=== PATIENT | female | born 1945 | race Caucasian/White ===

== ENCOUNTER 2020-02-19 07:55 | Day surgery (SDC) | payer OTHER, MEDICARE ==
[2020-02-12 10:44] VITALS: BMI 19.8
--- NOTE | 2020-02-16 10:11 | HP ---
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 The medial, deep and superior surgical margins are involved by tumor therefore patient is presenting for excision of positive margins. History Source: Patient Limitations to Obtaining History: No Limitations - Past Medical History Cardiovascular: Yes: HTN Musculoskeletal: Yes: Other (right hip dysplasia) - Smoking History Smoking history: Current every day smoker Have you smoked in the past 12 months: Yes Aproximately how many cigarettes per day: 5 - Alcohol/Substance Use Hx Alcohol Use: Yes (RARE) Home Medications - Allergies Allergies/Adverse Reactions: Allergies Allergy/AdvReac Type Severity Reaction Status Date / Time codeine Allergy Severe Rash Verified 02/04/20 08:59 hydromorphone [From Dilaudid] Allergy Severe Rash Verified 02/04/20 08:59 morphine Allergy Severe Rash Verified 02/04/20 08:59 oxycodone [From Percocet] Allergy Severe Rash Verified 02/04/20 08:59 tramadol [From Ultram] Allergy Severe Rash Verified 02/04/20 08:59 - Home Medications Home Medications: Ambulatory Orders Amlodipine Besylate [Norvasc -] 5 mg PO DAILY 01/27/20 Cholecalciferol (Vitamin D3) [Vitamin D3] 1 tab PO DAILY 01/27/20 Estrogens, Conjugated [Premarin] 0.45 mg PO DAILY 01/27/20 Acetaminophen [Tylenol] 650 mg PO TID PRN #20 tablet 02/03/20 Medroxyprogesterone Acetate [Provera] 2.5 mg PO DAILY 02/12/20 Family Medical History Family Hx Cancer: Brother (T cell lymphoma) Review of Systems - Review of Systems Constitutional: reports: No Symptoms Cardiovascular: reports: No Symptoms Respiratory: reports: No Symptoms Physical Examination Constitutional: Yes: Well Nourished, Calm Breast(s): Yes: Other (B-cup breasts with a left periarolar incision. No erythema or discharge noted) Assessment/Plan Plan Reexcision of left breast positive margins
[2020-02-19] MEDS ORDERED: PROPOFOL 20 ML ONE ×2 (09:42)
[2020-02-19] MEDS ORDERED: MIDAZOLAM HCL 2 MG/2 ML SINGLE DOSE VIAL ONE (09:42)
[2020-02-19] MEDS ORDERED: SUCCINYLCHOLINE CHLORIDE 200 MG/10 ML SYRINGE ONE (09:42)
[2020-02-19] MEDS ORDERED: SEVOFLURANE 250 ML BTL ONE (09:44)
[2020-02-19] MEDS ORDERED: KETOROLAC TROMETHAMINE 30 MG/1 ML VIAL IVPUSH PRN (10:02)
[2020-02-19] MEDS ORDERED: ONDANSETRON 4 MG/2 ML VIAL IVPUSH PRN ×2 (10:02→11:16)
[2020-02-19] MEDS ORDERED: DEXTROSE 5%-0.45% SALINE 1,000 ML IV SCH (10:15)
[2020-02-19] MEDS ORDERED: BUPIVACAINE HCL/PF 0.5% (5MG/ML) 10 ML VIAL ONE (10:40)
[2020-02-19] MEDS ORDERED: BUPIVACAINE HCL/PF 0.25% (2.5MG/ML) 10 ML VIAL ONE (10:40)
[2020-02-19] MEDS ORDERED: LIDOCAINE HCL 1%, 10 MG/ML (20ML VIAL) NR ONE (10:45)
[2020-02-19] MEDS ORDERED: GUM MASTIC/STORAX/MSAL/ALCOHOL 1 DRP DROPSBTL MC ONE (10:47)
[2020-02-19] MEDS ORDERED: BUPIVACAINE HCL/PF 0.5% (5MG/ML) 10 ML VIAL IJ ONE (11:05)
[2020-02-19] MEDS ORDERED: PROMETHAZINE HCL 25 MG/1 ML VIAL IVPUSH PRN (11:16)
[2020-02-19] MEDS ORDERED: ACETAMINOPHEN/CAFFEINE/BUTALBITAL 1 TAB ONE (11:17)
[2020-02-19] MEDS ORDERED: ACETAMINOPHEN/CAFFEINE/BUTALBITAL 1 TAB PO PRN (11:45)
[2020-02-19 12:35] VITALS: TEMP 98.1
[2020-02-19 12:45] VITALS: PULSE 70
[2020-02-19 12:58] VITALS: BP 125/51
--- NOTE | 2020-02-19 14:33 | OP ---
DATE OF OPERATION: 02/19/2020 PREOPERATIVE DIAGNOSIS: Borderline phyllodes tumor. POSTOPERATIVE DIAGNOSIS: Borderline phyllodes tumor. PROCEDURE: Left breast re-excision for margins in the superior, medial, and deep aspects. ANESTHESIA: General laryngeal mask airway anesthesia. PRIMARY SURGEON: Shelly Degroot MD OFFICE RENTAL CLERK: GASTON Davila COMPLICATIONS: There were no complications. INDICATIONS/DESCRIPTION OF PROCEDURE: Briefly, the patient is a 74-year-old postmenopausal female of [place] descent with no family history of breast cancer. She has had extremely dense fibrocystic changes over the years and was found to have a suspicious density in the left breast 6 o'clock region on ultrasound. In December 2019, an ultrasound-guided core biopsy showed a spindle-like lesion. She ended up undergoing an excision of this density in the operating room on February 03, 2020, which showed a 1.6-cm borderline phyllodes tumor. This was felt to be completely excised since ultrasound had only showed about a 1.4-cm density. Final pathology, however, showed a borderline phyllodes tumor, and there were positive margins on the medial, deep, and superior aspects. Re-excision was recommended to be sure that this tumor is fully excised. The patient was brought back into the operating room on February 19, 2020. In the holding area, site verification was made and informed consent was obtained. She had COVID testing preoperatively which was negative. She was brought back into the operating room, and the patient was given 1 g of Ancef prior to incision. Venodynes were placed on the lower extremities prior to induction. She underwent general laryngeal mask airway anesthesia. The left breast was sterilely prepped and draped in the usual fashion. Once she was properly anesthetized, timeout was performed. Curvilinear incision was made, opening up the previous wide excision scar, and dissection was undertaken. The cavity was easily entered. Seroma was found. Margins were then excised from the deep, superior, and medial aspect, with a suture marking the biopsy cavity site of each margin and sent separately to pathology in formalin with a suture marking the biopsy cavity site. Hemostasis was achieved. The breast parenchyma was then reapproximated using 2-0 plain suture. The skin was closed using interrupted 3-0 deep dermal Vicryl suture and a running 4-0 subcuticular Biosyn suture. Mastisol and Steri-Strips were applied over the wound, with a compressive dressing placed over this. She was placed in a surgical bra postoperatively. We did instill 0.5% Marcaine in the wound prior to closure for postop pain relief. Laryngeal mask airway tube was removed and she will be recovered in the postanesthesia care unit and discharged home the same day once discharge criteria are met. All sponge and needle counts were correct at the end of the case. The patient will follow up in the office in 1 week for formal wound pathology check. SHELLY DEGROOT M.D. [id number]
--- NOTE | 2020-02-25 15:10 | PATH ---
Surgical Pathology Report Patient Name: BO PILLAI [facility]. Rec. #: [id number] /Age/Gender: 1945 (Age: 74) / F Account: [id number] Location: [facility] Taken: 02/19/2020 Received: 02/19/2020 Reported: 02/25/2020 Physicians: Good Degroot M.D. Specimen(s) Received A: LEFT BREAST DEEP MARGIN B: LEFT BREAST MEDIAL MARGIN C: LEFT BREAST SUPERIOR MARGIN Clinical History Previous excision of phyllodes tumor borderline Final Diagnosis A. BREAST, LEFT, DEEP MARGIN, EXCISION: BENIGN BREAST TISSUE SHOWING PROLIFERATIVE FIBROCYSTIC CHANGES INCLUDING CYSTIC APOCRINE METAPLASIA AND USUAL DUCTAL HYPERPLASIA (UDH). NO RESIDUAL PHYLLODES TUMOR IS IDENTIFIED. B. BREAST, LEFT, MEDIAL MARGIN, EXCISION: FOCAL RESIDUAL PHYLLODES TUMOR, EXTENDING TO THE NEW MARGIN. REMAINING BREAST TISSUE SHOWS PROLIFERATIVE FIBROCYSTIC CHANGES INCLUDING CYSTIC APOCRINE METAPLASIA AND USUAL DUCTAL HYPERPLASIA (UDH). PRIOR BIOPSY SITE CHANGES ARE PRESENT. C. BREAST, LEFT, SUPERIOR MARGIN, EXCISION: BENIGN BREAST TISSUE SHOWING PROLIFERATIVE FIBROCYSTIC CHANGES INCLUDING CYST FORMATION WITH USUAL DUCTAL HYPERPLASIA (UDH) AND COLUMNAR CELL CHANGE. (SEE NOTE) NO RESIDUAL PHYLLODES TUMOR IS IDENTIFIED. PRIOR BIOPSY SITE CHANGES ARE PRESENT. Note: E-Cadherin immunostain (performed at [facility]: [id number]) was used in the evaluation of this case (part C) and aids in ruling out an atypical lobular proliferation. Electronically Signed Nelia Martins M.D. Gross Description A. Received in formalin labeled "left breast deep margin," is a 2.2 x 2.0 x 0.8 cm portion of fibroadipose tissue with a suture marking the biopsy cavity side, per the surgeon. The new margin is inked blue and the specimen is serially sectioned. The specimen is entirely submitted in 3 cassettes. B. Received in formalin labeled "left breast medial margin," is a 1.8 x 0.8 x 0.8 cm portion of fibroadipose tissue with a suture marking the biopsy cavity side, per the surgeon. The new margin is inked blue and the specimen is serially sectioned. The specimen is entirely submitted in 2 cassettes. C. Received in formalin labeled "left breast superior margin," is a 1.5 x 1.3 x 0.5 cm portion of fibroadipose tissue with a suture marking the biopsy cavity side, per the surgeon. The new margin is inked blue and the specimen is serially sectioned. The specimen is entirely submitted in 2 cassettes. 02/19/2020 [facility]02/19/2020
== END 2020-02-19 13:15 | disposition home or self-care (01) ==
LOC: FASU 07:55
PROVIDERS: ATTEND Surgery Surgical Oncology
PROC: 0HBU0ZX Excision of Left Breast, Open Approach, Diagnostic (ICD-10-PCS; principal; 2020-02-19 10:28)
DX: D48.62 Neoplasm of uncertain behavior of left breast (principal); N60.12 Diffuse cystic mastopathy of left breast; N60.82 Other benign mammary dysplasias of left breast
CPT/HCPCS: 88307-TC; 94760